=== PATIENT | male | born 1980 | race Two or more races ===

== ENCOUNTER 2021-01-29 07:47 | Day surgery (SDC) | payer OTHER ==
[2021-01-29] MEDS ORDERED: AMOX1TAB5 PO (11:37)
== END 2021-01-29 12:50 | disposition home or self-care (01) ==
LOC: AMB-ENDOS 07:47
PROVIDERS: ATTEND Surgery
DX: K62.89 Other specified diseases of anus and rectum (principal); Z20.822 Contact with and (suspected) exposure to COVID-19; Z12.11 Encounter for screening for malignant neoplasm of colon